=== PATIENT | female | born 1990 ===

== ENCOUNTER 2017-01-30 11:09 | Day surgery (SDC) | payer OTHER ==
[2016-11-07 13:44] VITALS: BMI 29.9
[2017-01-30 12:02] VITALS: O2SAT 100
[2017-01-30] MEDS ORDERED: Lactated Ringer's 1,000 ML IV ONE (12:30)
[2017-01-30] MEDS ORDERED: Propofol 10 mg/ml Inj (20 ML) ONE ×2 (12:36→12:43)
--- NOTE | 2017-01-30 12:36 | CP.SDSHP ---
Same Day Surgery H & P - History Proposed Procedure: endoscopy Pre-Op Diagnosis: rreflux - Previous Medical/Surgical History Endocrine/Metabolic: Obesity - Allergies Allergies: Allergies No Known Allergies Allergy (Verified 01/30/17 11:31) - Physical Exam Vital Signs: Vital Signs 01/30/17 11:30 Temperature 98 F Pulse Rate 80 Respiratory 20 Rate Blood Pressure 121/70 O2 Sat by Pulse 100 Oximetry Mental Status: Alert & Oriented x3 Neuro: WNL Lungs: WNL - {Optional Preform as Required} Abdomen: WNL - Impression Impression: esophagitis Pt. Evaluated Today:Candidate for Anesthesia & Procedure: Yes - Date & Time Date: 01/30/17 Time: 12:35 Short Stay Discharge - Short Stay Discharge Admitting Diagnosis/Reason for Visit: GASTRO-ESOPHAGEAL REFLUX DISEASE WITHOUT ESOPHAGIT Disposition: HOME/ ROUTINE Referrals: PCP,NO [Primary Care Provider] -
[2017-01-30 13:45] VITALS: BP 105/61; PULSE 69; RESP 12; TEMP 97
== END 2017-01-30 14:17 | disposition home or self-care (01) ==
LOC: C.ENDO 11:09
PROVIDERS: ATTEND Internal Medicine Gastroenterology
DX: K21.9 Gastro-esophageal reflux disease without esophagitis (principal); K20.9 Esophagitis, unspecified; K29.70 Gastritis, unspecified, without bleeding
CPT/HCPCS: 43239; 84703; J2704; J7120

== ENCOUNTER 2017-10-26 22:48 | Emergency (ER) | payer BC, MEDICAID, OTHER ==
[2017-10-26 22:48] VITALS: BMI 29.9
[2017-10-27 00:09] LABS: BASO % 0.2 % (0.0-2.0); EOS # 0.1 K/uL (0.0-0.7); EOS % 0.7 % (0.0-4.0); HEMOGLOBIN 12.5 g/dL (11.0-16.0); LYMPH # 1.9 K/uL (1.0-4.3); LYMPH % 16.6 % (20.0-40.0); MEAN CELL VOLUME 85.9 fL (81.0-99.0); MEAN CORPUSCULAR HEMOGLOBIN 28.7 pg (27.0-31.0); MEAN CORPUSCULAR HGB CONC 33.4 g/dL (33.0-37.0); MEAN PLATELET VOLUME 8.8 fL (7.2-11.7); MONO % 8.5 % (0.0-10.0); NEUT # 8.4 K/uL (1.8-7.0); RBC 4.36 Mil/uL (3.80-5.20); RED CELL DISTRIBUTION WIDTH 17.9 % (11.5-14.5); WHITE BLOOD COUNT 11.3 K/uL (4.8-10.8)
--- NOTE | 2017-10-27 00:13 | C.PDOC ---
History Of Present Illness 27 year old female 9 week presents to the ED for evaluation of vaginal bleeding that started today [employer]. Patient reports she is also having lower back pain and abdominal cramps associated with her vaginal bleeding. Patient states this is her fist , but has has several US done in the past. Patient is currently taking progesterone and pre vitamins. Patient denies fever, chills, nausea, vomit, diarrhea. Chief Complaint (Nursing): Female Genitourinary History Per: Patient History/Exam Limitations: no limitations Onset/Duration Of Symptoms: Hrs Current Symptoms Are (Timing): Still Present Quality Of Discomfort: "Pain" Alleviating Factors: None Recent travel outside of the [place]: No Additional History Per: Patient Abnormal Vaginal Bleeding: Yes Last Menstral Period: 08/22/17 Past Medical History Reviewed: Historical Data, Nursing Documentation, Vital Signs Vital Signs: Last Vital Signs Temp 98.2 F 10/26/17 22:56 Pulse 88 10/26/17 22:56 Resp 16 10/26/17 22:56 BP 112/75 10/26/17 22:56 Pulse Ox 98 10/27/17 04:27 - Medical History PMH: Anemia, Asthma (DOES NOT USE MEDICATIONS), Hypercholesterolemia, Hyperlipidemia Denies: Depression, Chronic Kidney Disease Surgical History: Endoscopy Denies: Pacemaker - [facility] Procedures COLONOSCOPY (12/26/13) ESOPHAGOGASTRODUODENOSCOPY [EGD] W/CLOSED BIOPSY (12/26/13) INJECT/INFUSE ELECTROLYT (12/06/14) INJECT/INFUSE NEC (04/13/14) Family History: States: No Known Family Hx - Social History Hx Tobacco Use: No Hx Alcohol Use: No Hx Substance Use: No Review Of Systems Constitutional: Negative for: Fever, Chills Cardiovascular: Negative for: Chest Pain Respiratory: Negative for: Shortness of Breath Gastrointestinal: Negative for: Nausea, Vomiting Genitourinary: Positive for: Vaginal Bleeding Skin: Negative for: Rash Neurological: Negative for: Weakness, Numbness Physical Exam - Physical Exam Appears: Non-toxic, No Acute Distress Skin: Normal Color, Warm, Dry Head: Atraumatic, Normacephalic Eye(s): bilateral: Normal Inspection Oral Mucosa: Moist Neck: Normal ROM, Supple Chest: Symmetrical Cardiovascular: Rhythm Regular Respiratory: Normal Breath Sounds, No Rales, No Rhonchi, No Wheezing Gastrointestinal/Abdominal: Soft, Tenderness (suprapubic ), No Guarding, No Rebound Extremity: Normal ROM, No Tenderness, No Swelling Neurological/Psych: Oriented x3, Normal Speech Gait: Steady ED Course And Treatment - Laboratory Results Result Diagrams: 10/27/17 00:05 10/27/17 00:05 O2 Sat by Pulse Oximetry: 98 (ON RA) Pulse Ox Interpretation: Normal - CT Scan/US Pelvic US Other Rad Studies (CT/US): Read By Radiologist, Radiology Report Reviewed CT/US Interpretation: EXAM: US First Trimester, Transabdominal. EXAM DATE/TIME: Exam ordered 10/26/2017 11:36 PM. CLINICAL HISTORY: 27 years old, female; Signs and symptoms; Lmp or gestational age (in weeks): 5-2-18; Other: Vag. bleed; ; Additional info: Vag bleed, pos hcg. TECHNIQUE: Real-time transabdominal obstetrical ultrasound of the maternal pelvis and a first trimester. with image documentation. COMPARISON: No relevant prior studies available. FINDINGS: Gestation: There is an intrauterine identified with an approximate gestational age of 9. weeks and 6 days. Heart rate 168 beats per minute is documented. [place]-rump length of 2.6 cm. Uterus/cervix: Multiple uterine fibroids are noted measuring up to 5 cm. Ovaries: Left ovary not seen. Unremarkable. Free fluid: No free fluid. IMPRESSION: There is an intrauterine identified with an approximate gestational age of 9 weeks and 6. days. Heart rate 168 beats per minute is documented. Thank you for allowing us to participate in the care of your patient. Dictated and Authenticated by: Moisés Oleary MD Medical Decision Making Medical Decision Making: Impression: vaginal bleeding Plan: * Labs * US * UA Disposition - Disposition Referrals: Bridgette Sandoval MD [Staff Provider] - Disposition: HOME/ ROUTINE Disposition Time: 04:39 Condition: FAIR Instructions: Threatened Miscarriage Forms: Work/School/Gym Excuse, [facility] (Greenlandic) Print Language: LUX[place]BOURGISH - Clinical Impression Clinical Impression: Threatened - Scribe Statement The provider has reviewed the documentation as recorded by the Scribe Balaji Urbina All medical record entries made by the Scribe were at my direction and personally dictated by me. I have reviewed the chart and agree that the record accurately reflects my personal performance of the history, physical exam, medical decision making, and the department course for this patient. I have also personally directed, reviewed, and agree with the discharge instructions and disposition.
[2017-10-27 00:15] LABS: SQUAMOUS EPITHIAL 4 /hpf (0-5); URINE BACTERIA RARE (<OCC); URINE BILIRUBIN NEGATIVE (NEGATIVE); URINE BLOOD 3+ (NEGATIVE); URINE CLARITY Hazy (Clear); URINE COLOR Yellow (YELLOW); URINE GLUCOSE (UA) NORMAL (Normal); URINE LEUKOCYTE ESTERASE NEG Leu/uL (Negative); URINE PROTEIN NEGATIVE (NEGATIVE); URINE UROBILINOGEN NORMAL mg/dL (0.2-1.0)
[2017-10-27 00:17] LABS: HCG,QUALITATIVE URINE POSITIVE (NEGATIVE)
[2017-10-27 00:21] LABS: ALB/GLOB RATIO 1.4 (1.0-2.1); ALBUMIN 4.4 g/dL (3.5-5.0); ALT/SGPT 23 U/L (9-52); AST/SGOT 20 U/L (14-36); BLOOD UREA NITROGEN 6 mg/dL (7-17); CALCIUM 9.4 mg/dl (8.6-10.4); GFR AFRICAN-AMERICAN > 60; GFR NON-AFRICAN AMERICAN > 60
[2017-10-27 04:44] VITALS: BP 103/69; PULSE 84; RESP 20; TEMP 98.1; O2SAT 100
--- NOTE | 2017-10-27 17:31 | US ---
PROCEDURE: OB Pelvic Ultrasound HISTORY: vag bleed,pos hcg LMP: 08/22/2017 COMPARISON: None available. FINDINGS: UTERUS: Gestational sac: MSD = 4.97 cm = 10 weeks 5 days. Heart rate: 168 bpm. age (Ultrasound estimated): 10 weeks 2 days 0 weeks 5 days Nancy-gestational hemorrhage: None. Date of delivery (Ultrasound estimated) : 05/23/2018 Uterus measures approximately 12.7 x 6.6 x 8.8. Anteverted. . There are at least 3 uterine fibroids ; 1 of the lower uterine segment (5.0 cm greatest dimension) another in the mid body (2.9 cm in greatest dimension) and another in the fundal region (1.9 cm greatest dimension). CERVIX: Measures 3.3 cm. Long and closed. No cervical abnormality seen. RIGHT OVARY: Measures 3.2 x 2.3 x 2.4 cm. No mass lesion. Normal flow. LEFT OVARY: Not visualized FREE FLUID: None. OTHER FINDINGS: None. IMPRESSION: Single living intrauterine gestation at approximately 10 weeks 2 days 0 weeks 5 days. Heart rate document at 168 BPM. Uterine fibroids.
== END 2017-10-27 04:44 | disposition home or self-care (01) ==
LOC: C.ER 22:48
DX: O20.0 Threatened abortion (principal); Z3A.09 9 weeks gestation of pregnancy